=== PATIENT | female | born 1960 | race Caucasian/White ===

== ENCOUNTER → 2017-02-03 | Outpatient (CLI) | payer OTHER ==
--- NOTE | 2017-02-03 10:37 | CARD ---
APPROVED REPORT EXAM: Two-dimensional and M-mode echocardiogram with Doppler and color Doppler. Other Information Quality : Average Rhythm : NSR INDICATION Dyspnea 2D DIMENSIONS RVDd3.0 (2.9-3.5cm)Left Atrium(2D)2.9 (1.6-4.0cm) IVSd1.0 (0.7-1.1cm)Aortic Root(2D)2.8 (2.0-3.7cm) LVDd4.9 (3.9-5.9cm)LVOT Diameter2.0 (1.8-2.4cm) PWd1.0 (0.7-1.1cm)LVDs2.8 (2.5-4.0cm) FS (%) 32.6 %SV84.1 ml LVEF(%)63.5 (>50%) Aortic Valve AoV Peak Juan David.139.8cm/sAoV VTI26.4cm AO Peak GR.7.8mmHgLVOT Peak Juan David.122.2cm/s LVOT VTI 26.49cmAO Mean GR.4mmHg NICK (VMAX)2.46ns4GBN (VTI)3.05cm2 AI P 1/2 Oxal164wu Mitral Valve MV E Saovtnjs14.9cm/sMV DECEL GYHZ502ou MV A Nnlkxkbi51.4cm/sMV XSR90ga E/A Ratio1.2MV A Nnwqssgl29tc MVA (PHT)3.54cm2 TDI E/Lateral E'6.8E/Medial E'9.6 Tricuspid Valve TR P. Hamsqsju214bh/sRAP UURFHXGK7eiLs TR Peak Gr.40zkKwVTFR23yiHw Pulmonary Vein S1 Xnjlpyua59.3cm/sD2 Ydnpvnyo42.4cm/s LEFT VENTRICLE The left ventricle is normal size. There is normal left ventricular wall thickness. Left ventricle sy stolic function is normal. The Ejection Fraction is 60-65%. There is normal LV segmental wall motion. The left ventricular diastolic function and filling is normal for age. There is no ventricular septa l defect visualized. RIGHT VENTRICLE The right ventricle is normal size. The right ventricular systolic function is normal. ATRIA The left atrium size is normal. The right atrium size is normal. The interatrial septum is intact wit h no evidence for an atrial septal defect or patent foramen ovale as noted on 2-D or Doppler imaging. AORTIC VALVE The aortic valve is not well visualized. Doppler and Color Flow revealed no significant aortic regurg itation. There is no significant aortic valvular stenosis. MITRAL VALVE The mitral valve leaflets are sclerotic There is no mitral valve stenosis. Doppler and Color Flow rev ealed trace to mild mitral regurgitation. TRICUSPID VALVE The tricuspid valve is normal in structure and function. Doppler and Color Flow revealed mild tricusp id regurgitation. The PA pressure was estimated at 36 mmHg. There is no tricuspid valve stenosis. PULMONIC VALVE The pulmonic valve is not well visualized. Doppler and Color Flow revealed no pulmonic valvular regur gitation. There is no pulmonic valvular stenosis. GREAT VESSELS The aortic root is normal in size. The ascending aorta is normal in size. Normal pulmonary venous toni w (Doppler). The IVC is normal in size and collapses >50% with inspiration. PERICARDIAL EFFUSION There is no evidence of significant pericardial effusion. Critical Notification Critical Value: No <Conclusion> Left ventricle systolic function is normal. The Ejection Fraction is 60-65%. There is normal LV segmental wall motion.
--- NOTE | 2017-02-03 12:49 | RAD ---
APPROVED REPORT Test Type: Exercise Stress Nurse/Tech: Bibi Crook R.N. Test Indications: Dyspnea Cardiac History: None reported Medications: SEE EMR Medical History: Liver disease-Hep C, former smoker Resting ECG: SR Resting Heart Rate: 63 bpm Resting Blood Pressure: 162/96mmHg Pretest Chest Pain: None Nurse/Tech Notes S1S2, lungs CTA. Denied chest pain or SOA. Denied dizziness. The patient has been experiencing period s of shortness of breath. Experiencing major life stressors r/t custody [place] for grandchild. Consent: The procedure was explained to the patient in lay terms. Informed consent was witnessed. Juan lew was entered into [employer]. History and Stress Test performed by Bibi Crook R.N. Stress Symptoms SOA. POST EXERCISE Reason for Termination: Reached target heart rate Target HR: 137 Max HR: 147 bpm 90% of Maximum Predicted HR: 162 bpm Exercise duration: 4:02 min:sec, 2 Stage Exercise capacity: 7.0METs Max Blood Pressure: 192/91mmHg Blood Pressure response to exercise: Abnormal increase in blood pressure during stress. Heart Rate response to exercise: Normal Chest Pain: No. Arrhythmia: No. ST Change: Yes. BBB with T wave inversion in multiple leads INTERPRETATION Stress EKG Conclusion: Rate related left bundle branch block noted. The patient's target heart rate w as achieved. The patient exhibited a hypertensive response with stress. Imaging Protocol IMAGE PROTOCOL: Rest Tc-99m/stress Tc-99m 1 day Rest: Stress: Viability: Radiopharm.Tc99m TnludyrdrVa76t Sestamibi Qviq82fWx 33mCi Duration 17min. 12min. Img Date 02/03/2017 02/03/2017 Inj-Img [id number]. 60min. Rest Admin Site:IV - Right AntecubitalAdministrator:JOSELIN Camacho, ARRT (R)(N) Stress Admin Site: IV - Right AntecubitalAdministrator: Pino Ghosh, RT (R)(N) STRESS DATA End Diast. Vol.106.0mlAv. Heart Rate91.0bpm End Syst. Vol.26.0mlCO Index BSA0.0L/min Myocardial Euuv565.0gEject. Cgrnmmnj03.0% Stress Rates Pk. Fill Rate3.31EDV/secLVtime Pk. Fill 160.05msec Pk. Empty Rate5.13ESV/secLVtime Pk. Oqhdi366.46msec 1/3 Pk. Fill1.30EDV/sec Stress Scores Regional WT0.00Summed WT1.00 Regional WM0.00Summed WM0.00 The rest and stress images show normal perfusion, normal contraction and thickening. LV Perf. Quant 17 Seg. SSS3.00 17 Seg. SRS0.00 17 Seg. SDS3.00 Stress Defect Extent (% LAD)11.30Rest Defect Extent (% LAD)0.00Rev. Defect Extent (% LAD)8.80 Stress Defect Extent (% LCX) 0.00Rest Defect Extent (% LCX)0.00Rev. Defect Extent (% LCX)0.00 Stress Defect Extent (% RCA)0.00Rest Defect Extent (% RCA)0.00Rev. Defect Extent (% RCA)0.00 Stress Defect Extent (% ARELIS)4.80Rest Defect Extent (% ARELIS)0.00Rev. Defect Extent (% ARELIS)3.30 Other Information Quality:Good Risk Assessment: Low Risk Conclusion 1. Hypertensive BP response with average exercise capacity at 7.0 mets 2. Rate related LBBB with persistence into recovery - consistent with abnormal EKG response. 3. Normal perfusion at stress/rest. Normal EF at > 70% 4. No transient ischemic dilation 5. Low to moderate risk study
--- NOTE | 2017-02-05 16:24 | RESP ---
DATE OF SERVICE: 02/03/2017 The patient underwent full pulmonary function testing without bronchodilator administration on 02/03. FEV1 to FVC ratio was 72%. FEV1 was 86% of predicted, 2.16 liters. FVC was 92% of predicted, 2.99 liters. Total lung capacity was preserved. Residual volume was elevated. Diffusion capacity was slightly increased. IMPRESSION: 1. No significant evidence of obstructive or restrictive lung disease. 2. Mild air trapping. [place] BOWEN MD DR: SHAHRAM/nghia JOB#: [id number] / [id number] ROSA MARIA Dumas MD
== END | disposition home or self-care (01) ==
LOC: PF 07:51
PROVIDERS: ATTEND Internal Medicine Cardiovascular Disease
DX: I08.1 Rheumatic disorders of both mitral and tricuspid valves (principal); I44.7 Left bundle-branch block, unspecified; B19.20 Unspecified viral hepatitis C without hepatic coma; I10 Essential (primary) hypertension; I49.5 Sick sinus syndrome; R06.00 Dyspnea, unspecified; R06.02 Shortness of breath; R94.31 Abnormal electrocardiogram [ECG] [EKG]; Z87.891 Personal history of nicotine dependence
CPT/HCPCS: 78452; 93017; 93306; 94010; 94729; 96374; 96376; A9500